=== PATIENT | female | born 1940 | race Caucasian/White ===

== ENCOUNTER → 2017-09-27 | Day surgery (SDC) | payer MEDICARE ==
[2017-09-21 12:29] LABS: BASOPHILS # (AUTO) 0.1 (0.0-0.1); BASOPHILS % 1.1 % (0.0-1.0); EOSINOPHILS # (AUTO) 0.1 (0.0-0.4); EOSINOPHILS % 2.6 % (0.0-6.0); HEMOGLOBIN 14.4 g/dL (12.0-16.0); LYMPHOCYTES # (AUTO) 1.4 (1.0-3.2); LYMPHOCYTES % 25.8 % (18.0-39.1); MEAN CORPUSCULAR HEMOGLOBIN 30.3 pg (28-32); MEAN CORPUSCULAR HGB CONC 32.7 g/dL (31-35); MEAN CORPUSCULAR VOLUME 92.4 fL (81-99); MONOCYTES # (AUTO) 0.6 (0.2-0.8); NEUTROPHILS # (AUTO) 3.2 (2.1-6.9); NEUTROPHILS % 59.1 % (38.7-80.0); PLATELET COUNT 187 x10e3/uL (140-360); RED BLOOD COUNT 4.76 x10e6/uL (3.6-5.1)
[2017-09-21 12:49] LABS: INR 2.53; PROTHROMBIN TIME 25.6 seconds (11.9-14.5)
[~2017-09-27] MED LIST: ALENDRONATE SOD70 MG PO; CALTRATE 600 W1 EACH PO; CARVEDILOL25 MG PO; CENTRUM SILVER1 EAC3 PO; JANUVIA100 MG PO; LEVOTHYROXINE88 MCG PO; LIDOCAINE HCL 2% LOCAL INJ 5 ML SDV VIAL INJ ONE; LISINOPRIL5 MG PO; PIOGLITAZONE15 MG PO; PROPOFOL IV EMULSION 10 MG/ML 50 ML VIAL ONE; SIMVASTATIN10 MG PO; TURMERIC PO; WARFARIN SODIU2.5 MG PO
[2017-09-27 16:05] LABS: INR 1.43; PROTHROMBIN TIME 16.4 seconds (11.9-14.5)
[2017-09-27 16:06] LABS: PARTIAL THROMBOPLASTIN TIME 29.6 seconds (23.8-35.5)
== END | disposition home or self-care (01) ==
LOC: OR 14:15
PROVIDERS: ATTEND Internal Medicine
DX: Z12.11 Encounter for screening for malignant neoplasm of colon (principal); K62.1 Rectal polyp; K92.1 Melena; I48.91 Unspecified atrial fibrillation; K57.30 Diverticulosis of large intestine without perforation or abscess without bleeding; Z01.812 Encounter for preprocedural laboratory examination
CPT/HCPCS: 36415 ×2; 45380; 82948; 85025; 85610 ×2; 85730; 93005; J2001